=== PATIENT | female | born 1985 | race Caucasian/White ===

== ENCOUNTER 2017-01-01 20:25 | Emergency (ER) | payer OTHER, SELFPAY ==
[2017-01-01] MEDS ORDERED: Ibuprofen 600 MG TAB ONE (20:41)
[2017-01-01 20:47] LABS: Bilirubin Negative (Negative); Blood, Urine Small (Negative); Glucose, Urine (Dipstick) 250 mg/dL (Negative); Ketone, Urine Negative (Negative); Nitrite Negative (Negative); Protein, Urine (Dipstick) Trace mg/dL (Neg-Trace); Urobilinogen 0.2 mg/dL (0.2-1.0)
[2017-01-01 20:59] LABS: Bacteria/HPF 2+ HPF (None Seen); Hyaline Casts/LPF 0-3 HYALINE CAST LPF (0-3 Hyaline)
[2017-01-01] MEDS ORDERED: cefTRIAXone\\ROCEPHIN 2 GM VIAL ONE (21:21)
[2017-01-01 21:34] LABS: #Basophils 0.1 thou/uL (0.0-0.2); #Lymphocytes 0.5 thou/uL (1.20-3.40); #Monocytes 0.6 thou/uL (0.11-0.59); #Neutrophils 6.7 thou/uL (1.40-6.50); %Basophils 0.8 % (0.0-1.0); %Eosinophils 0.3 % (0.0-10.0); %Lymphocytes 5.8 % (21.0-51.0); %Monocytes 7.1 % (0.0-10.0); Hematocrit 32.8 % (36.0-47.0); Red Blood Cell (RBC) Count 3.58 mill/uL (4.20-5.40); White Blood Cell (WBC) Count 7.8 thou/uL (4.8-10.8)
[2017-01-01 21:46] LABS: ALT (SGPT) 20 U/L (8-55); AST (SGOT) 19 U/L (5-34); Alkaline Phosphatase 76 U/L (40-150); Anion Gap 14 mmol/L (10-20); BUN (Urea Nitrogen) 4 mg/dL (7.0-18.7); Bilirubin, Total 0.4 mg/dL (0.2-1.2); Calc. Creatinine Clearance 0 mL/min (70-130); Calcium 8.6 mg/dL (7.8-10.44); Carbon Dioxide 24 mmol/L (22-29); Chloride 103 mmol/L (98-107); Estimated GFR-MDRD Greater than 90; Globulin 2.8 g/dL (2.4-3.5); Protein, Total 6.3 g/dL (6.0-8.3)
== END 2017-01-01 22:40 | disposition home or self-care (01) ==
LOC: SCSER 20:25
DX: N12 Tubulo-interstitial nephritis, not specified as acute or chronic (principal); F41.9 Anxiety disorder, unspecified; F17.210 Nicotine dependence, cigarettes, uncomplicated; Z79.899 Other long term (current) drug therapy
CPT/HCPCS: 80053; 81003; 81015; 81025; 85025; 87040; 96365; J0696

== ENCOUNTER 2017-08-22 20:41 | Emergency (ER) | payer OTHER, SELFPAY ==
[2017-08-22] MEDS ORDERED: Ketorolac Tromethamine 60 MG/2 ML VIAL ONE (21:20)
== END 2017-08-22 21:39 | disposition home or self-care (01) ==
LOC: SCSER 20:41
DX: G43.909 Migraine, unspecified, not intractable, without status migrainosus (principal); F17.210 Nicotine dependence, cigarettes, uncomplicated
CPT/HCPCS: 96372; J1885

== ENCOUNTER 2018-01-26 00:08 | Emergency (ER) | payer SELFPAY ==
[2018-01-26] MEDS ORDERED: Metoclopramide 10 MG/10 ML UDCUP ONE (00:16)
[2018-01-26] MEDS ORDERED: diphenhydrAMINE 50 MG/ML VIAL ONE (00:16)
[2018-01-26] MEDS ORDERED: Metoclopramide HCl 10 MG/2 ML VIAL ONE (00:17)
[2018-01-26 00:41] LABS: #Basophils 0.1 thou/uL (0.0-0.2); #Eosinphils 0.2 thou/uL (0.0-0.7); #Lymphocytes 2.2 thou/uL (1.20-3.40); #Monocytes 0.8 thou/uL (0.11-0.59); #Neutrophils 4.1 thou/uL (1.40-6.50); %Basophils 1.1 % (0.0-1.0); %Eosinophils 2.9 % (0.0-10.0); %Monocytes 10.9 % (0.0-10.0); %Neutrophils 55.1 % (42.0-75.0); Hemoglobin 13.4 g/dL (12.0-16.0); Mean Corpuscular HGB CONC 33.6 g/dL (32.0-36.0); Mean Corpuscular Hemoglobin 32.2 pg (27.0-31.0); Mean Corpuscular Volume 95.8 fL (78.0-98.0); Mean Platelet Volume 6.7 fL (7.4-10.4); Platelet Count 404 thou/uL (130-400); RBC Distribution Width 12.2 % (11.5-14.5); Red Blood Cell (RBC) Count 4.17 mill/uL (4.20-5.40); White Blood Cell (WBC) Count 7.4 thou/uL (4.8-10.8)
[2018-01-26 01:00] LABS: ALT (SGPT) 12 U/L (8-55); AST (SGOT) 18 U/L (5-34); Albumin 4.5 g/dL (3.5-5.0); Alkaline Phosphatase 66 U/L (40-150); Anion Gap 15 mmol/L (10-20); BUN (Urea Nitrogen) 4 mg/dL (7.0-18.7); Bilirubin, Total 0.3 mg/dL (0.2-1.2); Calc. Creatinine Clearance 0 mL/min (70-130); Calcium 9.1 mg/dL (7.8-10.44); Carbon Dioxide 23 mmol/L (22-29); Chloride 102 mmol/L (98-107); Estimated GFR-MDRD Greater than 90; Globulin 2.9 g/dL (2.4-3.5); Glucose 87 mg/dL (70-105); Potassium 3.7 mmol/L (3.5-5.1); Protein, Total 7.4 g/dL (6.0-8.3); Sodium 136 mmol/L (136-145)
[2018-01-26 01:38] LABS: Bilirubin Negative (Negative); Blood, Urine Negative (Negative); Clarity CLEAR (Clear); Glucose, Urine (Dipstick) Negative (Negative); Leukocyte Negative (Negative); Nitrite Negative (Negative); Pregnancy Test - Urine (BHCG) Negative (Negative); Pregu Control Background? CLEAR/WHITE (CLR/WHITE); Pregu Control Bar Appear? YES (CONTROL BAR); Protein, Urine (Dipstick) Negative (Neg-Trace); Specific Gravity 1.003 (1.002-1.036); Specific Gravity, Urine 1.003 (1.002-1.036); Urobilinogen 0.2 mg/dL (0.2-1.0)
--- NOTE | 2018-01-26 07:45 | RAD ---
PORTABLE CHEST 1 VIEW: DATE: 01/25/2018 at 11:30 p.m. HISTORY: Syncope, headache, nausea. FINDINGS: Comparison is made with the exam of 06/24/2016. The heart size is normal. The lungs are expanded without focal areas of consolidation, pneumothorace s, or pleural effusions. IMPRESSION: No radiographic evidence of acute cardiopulmonary process. POS: [facility]
--- NOTE | 2018-01-26 08:11 | CT ---
PRELIMINARY REPORT/[facility]/EMERGENTY AFTER-HOURS PROCEDURE CT Head Without Intravenous Contrast EXAM DATE/TIME: 01/26/2018 1:03 AM CLINICAL HISTORY: 32 years old, female; Pain and signs and symptoms; Dizziness; Headache; Headache not specified; Patie nt HX: F32 presents via ems with C/O dizziness and SANTOS associated with nausea and vomiting onset earli er today. PT states that while she was at work she walked outside and had a syncopal event, landing on her buttocks TECHNIQUE: Axial computed tomography images of the head/brain without intravenous contrast. COMPARISON: No relevant prior studies available. FINDINGS: Brain: No acute intracranial hemorrhage or mass effect. No definite acute infarct by CT. MRI could be more sensitive/specific for detection, as clinically di rected. Ventricles: Ventricle size is normal for age. Bones/joints: No definite acute skull fracture. Sinuses: Included paranasal sinuses are essentially clear. Mastoid air cells: No significant acute finding. IMPRESSION: 1. No acute intracranial bleed or mass effect. 2. No definite acute infarct by CT, see above. Thank you for allowing us to participate in the care of your patient. Dictated and Authenticated by: Derek Vitale MD 01/26/2018 1:37 AM Central Time ([place] & [place]) FINAL REPORT HEAD CT WITHOUT CONTRAST: DATE: 01/26/2018. COMPARISON: None. HISTORY: Dizziness and headaches. FINDINGS: I agree with the preliminary [facility] report dictated by Dr. Derek Vitale. The imaged paranasal sinuses/ mastoid air cells are well aerated. No displaced calvarial fracture, intracranial hemorrhage, midlin e shift, or mass effect. IMPRESSION: No acute findings. POS: [facility]
--- NOTE | 2018-02-06 16:11 | EKG ---
Test Reason : Blood Pressure : / mmHG Vent. Rate : 085 BPM Atrial Rate : 085 BPM P-R Int : 132 ms QRS Dur : 070 ms QT Int : 392 ms P-R-T Axes : 053 061 042 degrees QTc Int : 466 ms Normal sinus rhythm Normal ECG Confirmed by VERNON RUSHING ([id number]), magazine editor TRINI GARCIA ([id number] on 02/06/2018 4:10:58 PM Referred By: Confirmed By:VERNON RUSHING
== END 2018-01-26 02:06 | disposition home or self-care (01) ==
LOC: ERS 00:08
DX: R51 Headache (principal); R55 Syncope and collapse; G43.909 Migraine, unspecified, not intractable, without status migrainosus; F41.9 Anxiety disorder, unspecified; F17.210 Nicotine dependence, cigarettes, uncomplicated; Z79.899 Other long term (current) drug therapy
CPT/HCPCS: 36415; 70450; 71045; 80053; 81003; 81025; 85025; 93005; 96365; 96375; J1200; J2765

== ENCOUNTER 2018-05-22 08:40 | Emergency (ER) | payer SELFPAY ==
[2018-05-22] MEDS ORDERED: HYDROcodone/Acetaminophen 10/325 mg Tablet ONE (09:08)
--- NOTE | 2018-05-22 10:24 | RAD ---
LEFT ANKLE 3 VIEWS: HISTORY: Pain. Injury. COMPARISON: None. FINDINGS: There is a large ankle joint effusion. Only seen on the AP radiograph is what appears to be a small fracture of the tip of the lateral malleolus. Ankle mortise is congruent. Talar dome is intact. No lateral talar shift. IMPRESSION: Likely a nondisplaced distal fibular tip fracture. POS: [facility]
== END 2018-05-22 10:09 | disposition home or self-care (01) ==
LOC: SCSER 08:40
DX: S82.832A Other fracture of upper and lower end of left fibula, initial encounter for closed fracture (principal); G43.909 Migraine, unspecified, not intractable, without status migrainosus; F17.210 Nicotine dependence, cigarettes, uncomplicated; I47.1 Supraventricular tachycardia; Z79.899 Other long term (current) drug therapy; X50.1XXA Overexertion from prolonged static or awkward postures, initial encounter
CPT/HCPCS: 29515

== ENCOUNTER 2021-07-30 10:15 | Emergency (ER) | payer OTHER, SELFPAY ==
[2021-07-30] MEDS ORDERED: Ketorolac Tromethamine 30 MG/ML VIAL ONE (11:15)
[2021-07-30] MEDS ORDERED: diphenhydrAMINE 50 MG/ML VIAL ONE (11:15)
[2021-07-30 11:48] LABS: #Basophils 0.1 thou/uL (0.0-0.2); #Lymphocytes 1.2 thou/uL (1.20-3.40); #Monocytes 0.8 thou/uL (0.11-0.59); #Neutrophils 6.5 thou/uL (1.40-6.50); %Basophils 0.7 % (0.0-1.0); %Eosinophils 0.6 % (0.0-10.0); %Lymphocytes 14.2 % (21.0-51.0); %Monocytes 9.6 % (0.0-10.0); Hemoglobin 14.7 g/dL (12.0-16.0); Mean Corpuscular HGB CONC 33.6 g/dL (32.0-36.0); Mean Corpuscular Hemoglobin 33.2 pg (27.0-31.0); Mean Corpuscular Volume 98.9 fL (78.0-98.0); Mean Platelet Volume 6.6 fL (7.4-10.4); Platelet Count 370 thou/uL (130-400); Red Blood Cell (RBC) Count 4.43 mill/uL (4.20-5.40); White Blood Cell (WBC) Count 8.6 thou/uL (4.8-10.8)
[2021-07-30 11:57] LABS: BHCG - Serum Negative (NEGATIVE); Pregs Control Background? CLEAR/WHITE (CLR/WHITE); Pregs Control Bar Appear? YES (CONTROL BAR)
[2021-07-30 12:11] LABS: ALT (SGPT) 26 U/L (8-55); AST (SGOT) 40 U/L (5-34); Albumin 4.8 g/dL (3.5-5.0); Alkaline Phosphatase 106 U/L (40-110); Anion Gap 16 mmol/L (10-20); BUN (Urea Nitrogen) 7 mg/dL (7.0-18.7); Bilirubin, Total 0.4 mg/dL (0.2-1.2); Calc. Creatinine Clearance 0 mL/min (70-130); Calcium 10.5 mg/dL (7.8-10.44); Carbon Dioxide 24 mmol/L (22-29); Chloride 99 mmol/L (98-107); Globulin 3.7 g/dL (2.4-3.5); Glucose 87 mg/dL (70-105); Potassium 3.7 mmol/L (3.5-5.1); Protein, Total 8.5 g/dL (6.0-8.3); Sodium 135 mmol/L (136-145)
== END 2021-07-30 13:36 | disposition home or self-care (01) ==
LOC: ERS 10:15
DX: R00.0 Tachycardia, unspecified (principal); F41.0 Panic disorder [episodic paroxysmal anxiety]; M19.90 Unspecified osteoarthritis, unspecified site; F17.210 Nicotine dependence, cigarettes, uncomplicated; Z79.899 Other long term (current) drug therapy
CPT/HCPCS: 71046; 80053; 84484; 84703; 85025; 85379; 93005; 96374; 96375; J1200; J1885

== ENCOUNTER 2021-08-07 13:12 | Emergency (ER) | payer OTHER ==
[2021-08-07] MEDS ORDERED: Famotidine 20 MG TAB ONE (14:01)
[2021-08-07] MEDS ORDERED: diphenhydrAMINE 50 MG/ML VIAL ONE (14:01)
[2021-08-07] MEDS ORDERED: methylPREDNISolone Sod Succ/PF 125 MG/2 ML VIAL ONE (14:01)
== END 2021-08-07 15:22 | disposition home or self-care (01) ==
LOC: ERS 13:12
DX: N39.0 Urinary tract infection, site not specified (principal); T36.8X5A Adverse effect of other systemic antibiotics, initial encounter; M19.90 Unspecified osteoarthritis, unspecified site; L40.9 Psoriasis, unspecified; F17.210 Nicotine dependence, cigarettes, uncomplicated; Z79.899 Other long term (current) drug therapy
CPT/HCPCS: 96374; J1200; J2930

== ENCOUNTER 2022-01-21 13:14 | Emergency (ER) | payer OTHER, SELFPAY ==
[2022-01-21] MEDS ORDERED: Acetaminophen 500 MG TAB ONE (14:56)
[2022-01-21 15:31] LABS: BHCG - Serum Negative (NEGATIVE); Pregs Control Background? CLEAR/WHITE (CLR/WHITE); Pregs Control Bar Appear? YES (CONTROL BAR)
[2022-01-21] MEDS ORDERED: Ketorolac Tromethamine 30 MG/ML VIAL ONE (16:57)
== END 2022-01-21 17:25 | disposition home or self-care (01) ==
LOC: ERS 13:14
DX: S10.93XA Contusion of unspecified part of neck, initial encounter (principal); S80.02XA Contusion of left knee, initial encounter; S20.312A Abrasion of left front wall of thorax, initial encounter; W01.0XXA Fall on same level from slipping, tripping and stumbling without subsequent striking against object, initial encounter
CPT/HCPCS: 36415; 70450; 71045; 72125; 84703; 96372; J1885

== ENCOUNTER 2022-11-12 21:43 | Emergency (ER) | payer OTHER ==
[2022-11-12] MEDS ORDERED: diphenhydrAMINE 50 MG/ML VIAL ONE ×2 (22:01→22:04)
[2022-11-12] MEDS ORDERED: Metoclopramide HCl 10 MG/2 ML VIAL ONE ×2 (22:01→22:03)
[2022-11-12] MEDS ORDERED: methylPREDNISolone Sod Succ/PF 125 MG/2 ML VIAL ONE ×3 (22:02→22:06)
[2022-11-12] MEDS ORDERED: Ketorolac Tromethamine 30 MG/ML VIAL ONE ×2 (22:02)
[2022-11-12] MEDS ORDERED: Magnesium 2 GM/50 ML BAG (IN WATER) ONE (22:03)
[2022-11-12 22:16] LABS: #Eosinphils 0.2 thou/uL (0.0-0.7); #Monocytes 0.9 thou/uL (0.11-0.59); #Neutrophils 3.8 thou/uL (1.40-6.50); %Basophils 0.6 % (0.0-1.0); %Eosinophils 2.2 % (0.0-10.0); %Lymphocytes 27.2 % (21.0-51.0); %Monocytes 13.5 % (0.0-10.0); %Neutrophils 56.4 % (42.0-75.0); Hematocrit 37.8 % (36.0-47.0); Mean Corpuscular HGB CONC 34.4 g/dL (32.0-36.0); Mean Corpuscular Hemoglobin 32.7 pg (27.0-31.0); Mean Corpuscular Volume 95.2 fl (78.0-98.0); Mean Platelet Volume 9.1 fL (7.4-10.4); Platelet Count 269 10x3/uL (130-400); RBC Distribution Width 12.3 % (11.5-14.5); Red Blood Cell (RBC) Count 3.97 mill/uL (4.20-5.40); White Blood Cell (WBC) Count 6.7 10x3/uL (4.8-10.8)
[2022-11-12 22:24] LABS: BHCG - Serum Negative (NEGATIVE); Pregs Control Background? CLEAR/WHITE (CLR/WHITE); Pregs Control Bar Appear? YES (CONTROL BAR)
[2022-11-12 22:39] LABS: ALT (SGPT) 23 U/L (8-55); AST (SGOT) 37 U/L (5-34); Alkaline Phosphatase 80 U/L (40-110); Anion Gap 16 mmol/L (10-20); BUN (Urea Nitrogen) Less than 4 mg/dL (7.0-18.7); Bilirubin, Total 0.3 mg/dL (0.2-1.2); Calc. Creatinine Clearance 0 mL/min (70-130); Calcium 8.4 mg/dL (7.8-10.44); Carbon Dioxide 21 mmol/L (22-29); Chloride 95 mmol/L (98-107); Estimated GFR 120; Globulin 2.9 g/dL (2.4-3.5); Glucose 74 mg/dL (70-105); Potassium 3.7 mmol/L (3.5-5.1); Protein, Total 6.9 g/dL (6.0-8.3); Sodium 128 mmol/L (136-145)
[2022-11-13 01:19] LABS: Bacteria/HPF None Seen HPF (None Seen); Bilirubin Negative (Negative); Blood, Urine Negative (Negative); CAUTI Indications for Culture Dysuria,urgency,freq; Clarity Clear (Clear); Glucose, Urine (Dipstick) Normal (Negative); Ketone, Urine Negative (Negative); Leukocyte Negative Leu/uL (Negative); Nitrite Negative (Negative); Protein, Urine (Dipstick) Negative (Neg-Trace); RBC/HPF None Seen HPF (0-3); Specific Gravity, Urine 1.002 (1.002-1.036); Squamous Epithelial 0-3 HPF (0-3); Urobilinogen Normal mg/dL (Less than 2); WBC/HPF 0-3 HPF (0-3)
[2022-11-13 01:21] LABS: Urine Culture Reflex No No
== END 2022-11-13 00:22 | disposition home or self-care (01) ==
LOC: ERS 21:43
DX: R51.9 Headache, unspecified (principal); E87.1 Hypo-osmolality and hyponatremia
CPT/HCPCS: 70450; 80053; 81001; 84703; 85025; 96365; 96375; J1200; J1885; J2765; J2930; J3475

== ENCOUNTER 2022-11-22 21:15 | Emergency (ER) | payer OTHER, SELFPAY ==
[2022-11-22] MEDS ORDERED: Ketorolac Tromethamine 30 MG/ML VIAL ONE (23:32)
== END 2022-11-22 23:40 | disposition left against medical advice (07) ==
LOC: ERS 21:15
DX: Z53.29 Procedure and treatment not carried out because of patient's decision for other reasons (principal)
CPT/HCPCS: J1885